=== PATIENT | female | born 1975 | race Caucasian/White ===

== ENCOUNTER 2017-05-09 19:23 | Inpatient (IN) | payer BC, OTHER ==
[~2017-05-09] VITALS: Ht 165.1 cm; Wt 54.0 kg
[2017-05-09] MEDS ORDERED: ONDANSETRON 4 MG/2 ML VIAL IM PRN (20:15)
[2017-05-09] MEDS ORDERED: ONDANSETRON ODT 4 MG TAB.RAPDIS SL PRN (20:15)
[2017-05-09] MEDS ORDERED: ACETAMINOPHEN 325 MG TABLET PO PRN (20:15)
[2017-05-09] MEDS ORDERED: MIRALAX 17 GM POWD.PACK PO PRN (20:15)
[2017-05-09] MEDS ORDERED: LOPERAMIDE HCL 2 MG CAPSULE PO PRN ×2 (20:15)
[2017-05-09] MEDS ORDERED: LORAZEPAM 1 MG TABLET PO PRN ×2 (20:15)
[2017-05-09] MEDS ORDERED: DICYCLOMINE HCL 20 MG TABLET PO PRN (20:15)
[2017-05-09] MEDS ORDERED: LORAZEPAM 2 MG/1 ML VIAL IM PRN (20:15)
[2017-05-09] MEDS ORDERED: MAG HYDROX/AL HYDROX/SIMETH 30 ML LIQUID UDC PO PRN (20:15)
[2017-05-09] MEDS ORDERED: MAGNESIUM HYDROXIDE 30 ML LIQUID UDC PO PRN (20:15)
[2017-05-09] MEDS ORDERED: THIAMINE HCL 200 MG/2 ML VIAL IM ONE (20:15)
--- NOTE | 2017-05-09 20:28 | NUR ---
Pre-admission assessment Patient is a 41-year old, female, seen at intake, AAOx4, no SOB and no anxiety noted at this time. Discussed with patient admission policies of the unit. Patient is coherent and able to respond to questions appropriately. Pt is ambulatory with steady gait. Pt reports drinking ETOH daily at this rate for "about a year". Alcohol of choice: Wine 2-3 glasses daily and Vodka "about 375 ml" daily. Vital signs taken and as follows: LU=904/78, P=86, O2 sat on RA=97%, RR=20, T=98.2. Pt verbalized instructions and teachings regarding disposal of narcotic and other controlled home meds, unit protocols such as taking of vital signs Q4H and handling and disposal of contraband. Addendum: 05/09/17 at 2040 by OBED MCGOVERN RN Additional information: Last drink was 05/08/17 at 2100
[2017-05-09 20:52] LABS: *URINE HCG, QUAL NEGATIVE (NEGATIVE)
[2017-05-09 20:55] LABS: *AMPHETAMINE, URINE NEGATIVE (NEGATIVE); *BARBITURATE, URINE NEGATIVE (NEGATIVE); *CANNABINOID, URINE NEGATIVE (NEGATIVE); *COCCAINE, URINE POSITIVE (NEGATIVE); *OPIATE, URINE NEGATIVE (NEGATIVE); *PHENCYCLIDINE SCREEN,URINE NEGATIVE (NEGATIVE)
[2017-05-09] MEDS ORDERED: LORAZEPAM 1 MG TABLET PO SCH (21:00)
--- NOTE | 2017-05-09 21:00 | NUR ---
ADMISSION NOTE HT - 5 FEET; 5 INCHES. WT - 119 POUNDS. NKDA / NKFA B/P=140/70,P=82,T=97.8,R=16,O2 SAT=98% ON ROOM AIR. CIWA=5. Admitting 41 y/o female to [facility] for ETOH dependency under the care of Dr Clements and Dr Franz.Pt stated she has been drinking Vodka / White wine off and on since she was 13 years old.She has been drinking approximately 500 mls of Vodka/Wine daily for the past year.Her last drink was a shot of Vodka at 1600.Pt also reported using cocaine in the past but not recently.Pt presented with nausea,anxiety,diaphoresis,decreased appetite and chills. Pt stated that her longest period of sobriety was 9 months x 2,which were during her 2 pregnancies in the years 2005 and 2008.She does not have any prior detox history.Pt is A/A/O X 4.She lives at home with her family.Pt has NKA,placed on regular diet and FULL CODE status.Pt has PMH of HTN,depression,anemia,pancreatitis and back injury.Pt reported that she only takes some medication for her depression but does not remember the name of the medication.No HX of seizures noted.Skin is intact,warm and dry to touch.She has multiple bruises all over her body,unable to state how she got them,thinks they are due to anemia.Breathing is even and non labored,lungs are clear to auscultation bilaterally;abdomen is soft and palpable with b/s present x 4.Pt oriented to room and unit;care plan and safety checks initiated, is aware of admission.All safety measures are in place per hospital policy,call light is within reach,no c/o pain noted;will continue to monitor for safe detox.
[2017-05-09] MEDS ORDERED: THIAMINE HCL 200 MG/2 ML VIAL ONE (21:38)
[2017-05-09 23:17] LABS: BASOPHILS % (AUTO) 1.1 % (0.0-2.0); EOSINOPHILS % (AUTO) 1.7 % (0.0-7.0); HEMATOCRIT 34.3 % (31.2-41.9); HEMOGLOBIN 11.9 g/dL (10.9-14.3); LYMPHOCYTES # (AUTO) 0.7 K/uL (20.0-40.0); MEAN CORPUSCULAR HEMOGLOBIN 35.3 uug (24.7-32.8); MEAN CORPUSCULAR HGB CONC 35 g/dL (32.3-35.6); MEAN CORPUSCULAR VOLUME 101.4 fL (75.5-95.3); MONOCYTES # (AUTO) 0.4 K/uL (2.0-10.0); MONOCYTES % (AUTO) 14.2 % (0.0-11.0); NEUTROPHILS # (AUTO) 1.5 K/uL (1.8-8.9); PLATELET COUNT (AUTO) 77 K/uL (179-408); RED BLOOD CELL COUNT(AUTO) 3.38 MIL/uL (3.63-4.92); WHITE BLOOD COUNT (AUTO) 2.6 K/uL (3.8-11.8)
[2017-05-09 23:45] LABS: ETHANOL < 3 MG/DL (0-0)
[2017-05-10] VITALS: BP 135/72
[2017-05-10] MEDS ORDERED: DULO60CA45 PO (02:35)
[2017-05-10 04:00] VITALS: BP 138/78
--- NOTE | 2017-05-10 04:40 | NUR ---
PRN ATIVAN 1 MG PO GIVEN FOR CIWA 6.WILL MONITOR.
--- NOTE | 2017-05-10 05:40 | NUR ---
PRN F/U PRN EFFECTIVE,PT IS CALM AND RESTING IN BED WITH EYES CLOSED,APPEARS TO BE ASLEEP.UNABLE TO ASSES FOR CIWA DUE TO SLEEP.
[2017-05-10 05:54] LABS: ALANINE AMINOTRANSFERASE 85 U/L (14-59); ALKALINE PHOSPHATASE 289 U/L (50-136); AMYLASE 28 U/L (25-115); ASPARTATE AMINOTRANSFERASE 244 U/L (15-37); BILIRUBIN,TOTAL 1.5 mg/dL (0.2-1.0); CARBON DIOXIDE 23 mmol/L (21-32); CHLORIDE 99 mmol/L (98-107); CHOLESTEROL 304 mg/dL (<200); CREATININE 0.8 mg/dL (0.6-1.3); GLUCOSE 150 mg/dL (74-106); HDL CHOLESTEROL 83 mg/dL (40-60); MAGNESIUM 1.7 mg/dL (1.8-2.4); POTASSIUM 3.2 mmol/L (3.5-5.1); TRIGLYCERIDES 98 MG/DL (30-150); UREA NITROGEN, BLOOD 10 mg/dL (7-18)
--- NOTE | 2017-05-10 06:51 | NUR ---
END OF SHIFT Pt is a 41 y/o female to admitted to [facility] for ETOH dependency under the care of Dr Clements and Dr Franz. Pt is A/O X 4.Pt has NKA,placed on regular diet and FULL CODE status.Pt has PMH of HTN,depression,anemia,pancreatitis and back injury. No HX of seizures noted.CIWA was 5 on admission.PRN Ativan 1 mg po given x 1 for CIWA of 6 and was effective.Pt was given 1 dose of ativan 2 mg last night and will start on ativan taper today as ordered.Pt slept 6 hrs,fluid intake was 500 mls,voided x 1 .PO fluids encouraged as tolerated. All safety measures in place with call light within reach. Will continue to monitor.
--- NOTE | 2017-05-10 07:55 | NUR ---
BEGINNING OF SHIFT Patient endorsement report received from shiftman nurse, all pertinent information discussed. Patient is a 41 year old female with admitting Dx: etoh dependence. Patient under close observation. Patient is scheduled to begin an ativan taper this morning, scheduled to begin day 1 of taper. patient received PRN: Ativan during shiftman. patient slept for 6 hours, and last CIWA: 5. will educate regarding plan of care for the day and medication regimen. safety measures in place. call light kept with in reach. all needs met and rendered, call light kept with in reach, will continue to monitor closely.
[2017-05-10 08:52] VITALS: BP 132/85
[2017-05-10] MEDS: MULTIVITAMINS,THERAPEUTIC TABLET PO SCH (08:58)
[2017-05-10] MEDS: LORAZEPAM 1 MG TABLET PO SCH ×3 (08:59→20:30)
[2017-05-10] MEDS: FOLIC ACID 1 MG TABLET PO SCH (08:59)
[2017-05-10] MEDS: THIAMINE HCL 100 MG TABLET PO SCH (08:59)
[2017-05-10] MEDS ORDERED: TUBERCULIN,PURIF.PROT.DERIV. 5 TU/0.1 ML TEST ID ONE (09:00)
[2017-05-10] MEDS: DULOXETINE 60 MG CAPSULE.DR PO SCH (10:08)
[2017-05-10] MEDS ORDERED: POTASSIUM CHLORIDE 20 MEQ TAB.PRT.SR PO ONE (10:15)
[2017-05-10] MEDS ORDERED: MAGNESIUM OXIDE 400 MG TABLET PO ONE (10:15)
--- NOTE | 2017-05-10 11:00 | NUR ---
MD ORDERS Patient was administered magnesium and potassium as ordered d/t low levels. Well tolerated, will continue to monitor.
[2017-05-10 13:07] VITALS: BP 145/72
[2017-05-10 16:51] VITALS: BP 130/80
--- NOTE | 2017-05-10 19:03 | NUR ---
END OF SHIFT Patient alert and oriented x4, vital signs were WNL during shift. Patient is compliant with therapeutic plan of care. Patient with admitting Dx: ETOH dependence and continues on a 4 day Ativan taper as ordered, currently on day 1 of taper, well tolerated, no ASE noted. During shift patient presented with: Tremors that can be felt but not seen, mild sweats, moderate anxiety, mild agitation, and moderate head fullness. CIWA: 11; 1300 CIWA: 11; 1700 CIWA: 6. Detox medication effective at reducing withdrawal symptoms. Received no PRNs during assistant shift supervisor. Encouraged adequate PO fluid intake as tolerated. Encouraged patient to attend group therapies/sessions to learn new coping skills to prevent relapse, noted attending and participating, denies SI/HI.Noted with good appetite during shift. Safety measures in place, call light kept with in reach. Fall precautions observed at all times. Will continue to monitor. Patient endorsed to assistant shift supervisor nurse, all pertinent information discussed.
--- NOTE | 2017-05-10 19:10 | NUR ---
Start of Shift Patient Received. Patient is in her room, awake, alert and verbally responsive. Breathing even and non labored. Per endorsement, patient continues receiving a modified 4 day Ativan taper. Magnesium and Potassium supplemented as per MD orders with patient tolerating well. Patient is noted with tachycardia, MD aware with no additional orders. Upon admission patient is noted with multiple scattered bruising and is currently being monitored for further bruising or bleeding. Patient is also being monitored for episodes of epistaxis. No Episodes noted. Patient encouraged to refrain from excessive picking. No PRN Medications administered. Last noted CIWA 6. Will encourage fluids as tolerated. All needs attended to promptly. Will continue plan of care as ordered.
[2017-05-10 20:25] VITALS: BP 135/79
[2017-05-10] MEDS: IBUPROFEN 400 MG TABLET PO PRN (20:30)
--- NOTE | 2017-05-10 20:35 | NUR ---
MD Communication/PRN medication Administration Patient noted verbalizing increased vivid dreams and explains "I found myself reaching for my children and then noticed that I was typing at my computer but obviously I'm here. I understanding it was dream but it was so real." CIWA noted to be 15. aware. Patient also noted verbalizing increased pain 5/10 due to lower back. PRN Motrin administered as per order. Encouraged patient to drink fluids as tolerated. All questions answered. Will continue to monitor.
[2017-05-10] MEDS: diphenhydrAMINE 50 MG CAPSULE PO PRN (21:44)
--- NOTE | 2017-05-10 21:48 | NUR ---
PRN Medication Reassessment/PRN Medication Administration Patient is noted in bed awake, alert and verbally responsive. Patient is able to verbalize "I still keep having very vivid dreams. I just was telling my dog to sit down. I thought I was back at home trying to make a phone call." CIWA noted to be 15. Patient is able to verbalize PRN Motrin was effective in minimizing pain. Will continue to monitor.
--- NOTE | 2017-05-10 22:45 | NUR ---
PRN Medication Reassessment Patient is noted in bed sleeping. Breathing even and non labored. No signs of restlessness or discomfort noted. No episodes of hallucinations noted. PRN Ativan 2mg noted to be effective. Will continue to monitor.
[2017-05-11 00:10] VITALS: BP 133/77
[2017-05-11 04:15] VITALS: BP 115/71
--- NOTE | 2017-05-11 07:03 | NUR ---
End of Shift Patient is in bed sleeping but is easily aroused to verbal stimuli. Breathing even and non labored. Patient is currently receiving a modified 4 day Ativan taper. Patient was noted with increased CIWA of 15 due to increased vivid dreams, tremulous, anxiety, and restlessness. Patient was able to describe her dreams as I just was telling my dog to sit down. I thought I was back at home trying to make a phone call. And I found myself reaching for my children and then noticed that I was typing at my computer but obviously I'm here. Patient was also given PRN Benadryl for inability of falling asleep and staying asleep with medication noted to be effective. Patient slept a total of 9 hours. No episodes of epistaxis noted. Patient continues to be monitored for bleeding. Encouraged and educated on fluid intake with patient able to verbalize understanding. Last noted CIWA 15. All needs attended to promptly. Will endorse to continue plan of care as ordered.
[2017-05-11 07:15] LABS: BASOPHILS % (AUTO) 1.6 % (0.0-2.0); EOSINOPHILS # (AUTO) 0.1 K/uL (0.0-0.7); EOSINOPHILS % (AUTO) 4.8 % (0.0-7.0); HEMATOCRIT 34.4 % (31.2-41.9); LYMPHOCYTES # (AUTO) 0.8 K/uL (20.0-40.0); LYMPHOCYTES % (AUTO) 29.8 % (20.5-51.5); MEAN CORPUSCULAR HEMOGLOBIN 35.4 uug (24.7-32.8); MEAN CORPUSCULAR HGB CONC 35 g/dL (32.3-35.6); MONOCYTES # (AUTO) 0.3 K/uL (2.0-10.0); NEUTROPHILS # (AUTO) 1.4 K/uL (1.8-8.9); NEUTROPHILS % (AUTO) 52.8 % (38.5-71.5); PLATELET COUNT (AUTO) 84 K/uL (179-408); WHITE BLOOD COUNT (AUTO) 2.6 K/uL (3.8-11.8)
--- NOTE | 2017-05-11 07:23 | NUR ---
BEGINNING OF SHIFT Patient endorsement report received from wallcovering hanger nurse, all pertinent information discussed. Patient is a 41 year old female with admitting Dx: etoh dependence. Patient under close observation. Patient continues on an Ativan taper, scheduled to begin day 2 of taper, patient received PRN: Ativan 2mg and Benadryl during wallcovering hanger, patient with episodes of vivid dreams during the night, will monitor closely for any s/sx of auditory of visual hallucinations during shift. patient slept for 9 hours, and last CIWA: 15. will educate regarding plan of care for the day and medication regimen. safety measures in place. call light kept with in reach. all needs met and rendered, call light kept with in reach, will continue to monitor closely.
[2017-05-11 08:11] LABS: HEPATITIS B SURFACE AG Negative (Negative)
[2017-05-11 08:44] VITALS: BP 124/67
[2017-05-11] MEDS: DULOXETINE 60 MG CAPSULE.DR PO SCH (08:51)
[2017-05-11] MEDS: MULTIVITAMINS,THERAPEUTIC TABLET PO SCH (08:51)
[2017-05-11] MEDS: LORAZEPAM 1 MG TABLET PO SCH ×2 (08:51→14:05)
[2017-05-11] MEDS: FOLIC ACID 1 MG TABLET PO SCH (08:51)
[2017-05-11] MEDS: THIAMINE HCL 100 MG TABLET PO SCH (08:51)
[2017-05-11 08:58] LABS: ALANINE AMINOTRANSFERASE 108 U/L (14-59); ALKALINE PHOSPHATASE 298 U/L (50-136); ASPARTATE AMINOTRANSFERASE 279 U/L (15-37); BILIRUBIN,DIRECT 0.6 mg/dL (0.0-0.2); BILIRUBIN,TOTAL 1.3 mg/dL (0.2-1.0); CARBON DIOXIDE 26 mmol/L (21-32); CHLORIDE 104 mmol/L (98-107); CREATININE 0.5 mg/dL (0.6-1.3); GLUCOSE 108 mg/dL (74-106); MAGNESIUM 1.8 mg/dL (1.8-2.4); PHOSPHOROUS 3.3 mg/dL (2.5-4.9); POTASSIUM 3.7 mmol/L (3.5-5.1); UREA NITROGEN, BLOOD 9 mg/dL (7-18)
[2017-05-11 09:09] LABS: BILIRUBIN,DIRECT 0.5 mg/dL (0.0-0.2); BILIRUBIN,TOTAL 1.2 mg/dL (0.2-1.0)
--- NOTE | 2017-05-11 09:30 | NUR ---
Therapist prompted client about group times. Client stated she will try to attend all groups today if she feels well.
[2017-05-11] MEDS ORDERED: MAGNESIUM OXIDE 400 MG TABLET PO ONE (09:45)
[2017-05-11] MEDS ORDERED: POTASSIUM CHLORIDE 20 MEQ TAB.PRT.SR PO ONE (09:45)
[2017-05-11 11:30] LABS: EOSINOPHILS % (MANUAL) 4 % (0-8); LYMPHOCYTES % (MANUAL) 26 % (20-40); MONOCYTES % (MANUAL) 11 % (2-10); NEUTROPHILS % (MANUAL) 59 % (42-75)
[2017-05-11 13:48] VITALS: BP 129/80
[2017-05-11 16:53] VITALS: BP 131/84
[2017-05-11] MEDS: IBUPROFEN 400 MG TABLET PO PRN (18:24)
--- NOTE | 2017-05-11 19:18 | NUR ---
END OF SHIFT Patient alert and oriented x4, vital signs were WNL during shift. Patient is compliant with therapeutic plan of care. Patient with admitting Dx: ETOH dependence and continues on a 4 day Ativan taper as ordered, currently on day 2 of taper, well tolerated, no ASE noted. During shift patient presented with: fine tremors, barely sweating, anxiety, mild agitation, and mild head fullness. 0900CIWA:9; 1300 CIWA: 7; 1700 CIWA:7. Patient was monitored closely during shift, no episodes of auditory or visual hallucination. Patient was seen by Dr. Clements during shift and aware of patients "vivid dreams" Potassium and Magnesium replaced as ordered, well tolerated. Detox medication effective at reducing withdrawal symptoms. Received PRN: Motrin during overnight associate, medication effective, one hour post administration. Encouraged adequate PO fluid intake as tolerated. Encouraged patient to attend group therapies/sessions to learn new coping skills to prevent relapse, preferred to stay in room, despite much encouragement to attend, denies SI/HI.Noted with good appetite during shift. Safety measures in place, call light kept with in reach. Fall precautions observed at all times. Will continue to monitor. Patient endorsed to overnight associate nurse, all pertinent information discussed
--- NOTE | 2017-05-11 19:30 | NUR ---
START OF SHIFT Pt is a 41 y/o female admitted on 05/09/17 for ETOH dependence. Pt is on a 4 day Ativan taper, tolerating well. Last CIWA 7 and PRN Motrin administered during day shift. Upon assessment pt laying in bed and presents with anxiety, irritability, fatigue, flat affect, increased HR, headache, back pain, sweats, photosensitivity and reports she is sensitive to sounds. Respirations even and unlabored. Denies chest pain or SOB. Denies N/V/D. Medications due. Safety measures in place. Call light within reach. Will continue to monitor.
[2017-05-11 20:00] VITALS: BP 130/82
[2017-05-11] MEDS: GABAPENTIN 100 MG CAPSULE PO SCH (20:41)
[2017-05-11] MEDS: PRAZOSIN HCL 1 MG CAPSULE PO SCH (20:42)
[2017-05-11] MEDS ORDERED: LORAZEPAM 1 MG TABLET PO SCH (21:00)
--- NOTE | 2017-05-12 | NUR ---
CIWA DEFERRED AND VITALS REFUSED Pt laying in bed with eyes closed, CIWA deferred, to be assessed when pt is awake per orders. Vitals refused. Respirations even and unlabored. Safety measures in place. Call light within reach. Will continue to monitor.
--- NOTE | 2017-05-12 07:14 | NUR ---
END OF SHIFT Pt is a 41 y/o female admitted on 05/09/17 for ETOH dependence. Pt is on a 4 day Ativan taper, tolerating well. Pt presented with anxiety, irritability, fatigue, flat affect, increased HR, headache, back pain, sweats, photosensitivity and reports she is sensitive to sounds. Scheduled medications administered, effective in S/S of withdrawal as verbalized by pt. No PRNs administered. Last CIWA 8. Pt slept 8 hours. Intake 600 ml, void x 2, stool x 0. Safety measures in place. Call light within reach. Pts needs have been met. Endorsed to day shift nurse.
--- NOTE | 2017-05-12 07:45 | NUR ---
START OF SHIFT Endorse rcvd from ongoing nurse, client is in room, she is easy arouse, she is a/o x4, she presents with depressed mood, flat affect, pale, lips dry and cracked, dark eye circles, moist skin, fine tremors, and dark purple bruises x 4 on L arm, x 2 on R arm, a bruise on R forearm d/t blood drawn, x 2 on back, x 2 on R lower leg. , encourage client to avoid bumps or falls to avoid any more bruising and to inform nursing staff for any spontaneous bleeding/bruising. Room is free of clutter. Client stated, "I had really vivid nightmares last night, but I was able to sleep a little bit better with the medication they gave me. Now, I just feel tired, really tired, have no appetite and I have stomach cramps." She denies any SI/HI. Encourage client to increase PO fluid as tolerated to maintain hydrated and to facilitate detox. Encourage client to attend group therapy for skills to maintain sober. Client was admitted for withdrawal from alcohol. She is on 4 day Ativan taper (day 3). Last CIWA 8 @ 1999. Client slept 8 hrs intermittently. NKA, full code, regular diet. No history of withdrawal-induced seizures. Side rails x 2 up/padded as seizure precautions. Call light within reach.
[2017-05-12 08:18] VITALS: BP 112/76
[2017-05-12] MEDS: DULOXETINE 60 MG CAPSULE.DR PO SCH (08:29)
[2017-05-12] MEDS: THIAMINE HCL 100 MG TABLET PO SCH (08:29)
[2017-05-12] MEDS: FAMOTIDINE 20 MG TABLET PO SCH (08:29)
[2017-05-12] MEDS: FOLIC ACID 1 MG TABLET PO SCH (08:29)
[2017-05-12] MEDS: MULTIVITAMINS,THERAPEUTIC TABLET PO SCH (08:29)
[2017-05-12] MEDS: LORAZEPAM 1 MG TABLET PO SCH ×2 (08:29→20:55)
[2017-05-12] MEDS: GABAPENTIN 100 MG CAPSULE PO SCH ×2 (08:29→20:55)
--- NOTE | 2017-05-12 09:00 | NUR ---
Zero induration noted at PPD Test site on L forearm.
--- NOTE | 2017-05-12 12:10 | NUR ---
Therapist prompted client about group times. Client stated she will attend the afternoon group today.
[2017-05-12 12:40] VITALS: BP 126/60
--- NOTE | 2017-05-12 14:20 | NUR ---
Client is in activity room, playing board games with peers. Client reports feeling less tired, haven't noted any new bruising, and no spontaneous bleeding. Encourage client to notify nursing staff with any change of condition or concerns, she verbalized understanding.
[2017-05-12 16:55] VITALS: BP 134/78
--- NOTE | 2017-05-12 17:03 | NUR ---
Therapist prompted client to go to group today. Client agreed to go.
[2017-05-12] MEDS: IBUPROFEN 400 MG TABLET PO PRN (18:36)
--- NOTE | 2017-05-12 18:36 | NUR ---
PRN Motrin 400mg PO administered for upper back pain 08/18. Call light within reach. Will continue to monitor.
--- NOTE | 2017-05-12 19:00 | NUR ---
Start of Shift Patient Received. Patient is in her room, awake, alert and verbally responsive. Breathing even and non labored. Per endorsement, patient was given PRN Motrin for upper back pain. Per patient medication was effective in minimizing pain. Per endorsement, patient noted to be compliant with medications and plan of care. Patient was noted to participate in group activities throughout the day but noted to miss group meetings. Patient is noted with multiple scattered bruises with no additional bruising noted. PPD noted to be negative. Last noted CIWA 7. Continued to educate and encourage patient to drink fluids as tolerated. All needs attended to promptly. Will continue plan of care as ordered.
--- NOTE | 2017-05-12 19:20 | NUR ---
END OF SHIFT Endorse to incoming nurse, client is in room, is a/o x4, she continues to present with depressed mood, flat affect, moist skin, fine tremors. She denies any SI/HI. Client is compliant with 1/3 of group therapy. Adequate PO fluid intake 1950mL, void x 4, stool x 1. PRN Motrin 400mg PO administered for upper back pain 08/18, incoming nurse to reassess. Client was admitted for withdrawal from alcohol. She is on 4 day Ativan taper (day 3). Last CIWA 7 @ 1600. NKA, full code, regular diet. No history of withdrawal-induced seizures. Side rails x 2 up/padded as seizure precautions. Call light within reach.
[2017-05-12 20:45] VITALS: BP 123/77
[2017-05-12] MEDS: diphenhydrAMINE 50 MG CAPSULE PO PRN (20:55)
[2017-05-12] MEDS: PRAZOSIN HCL 1 MG CAPSULE PO SCH (20:55)
--- NOTE | 2017-05-12 21:00 | NUR ---
PRN Medication Administration Patient is verbalizing inability of falling asleep. PRN Benadryl administered as per order. Will continue to monitor.
--- NOTE | 2017-05-12 22:00 | NUR ---
PRN Medication Reassessment Patient is noted in bed sleeping. Breathing even and non labored. No signs of restlessness or discomfort noted. PRN Benadryl noted to be effective. Will continue to monitor.
[2017-05-12 23:21] VITALS: BP 130/104
[2017-05-12] MEDS: CLONIDINE HCL 0.1 MG TABLET PO PRN (23:24)
--- NOTE | 2017-05-12 23:28 | NUR ---
PRN medication Administration patient noted awake and verbalized "I'm really restless. I woke up and cant go back to sleep." Vitals rendered and noted to be 130/104 pulse of 98. Patient verbalized "i just have a lot going thru my head." PRN Clonidine administered as ordered. Will continue to monitor.
[2017-05-13 00:21] VITALS: BP 106/62
--- NOTE | 2017-05-13 00:23 | NUR ---
PRN Medication Reassessment Patient was given PRN Clonidine for elevated blood pressure with medication noted to be effective. Blood pressure noted to be 106/62 and pulse of 89. Will continue to monitor.
[2017-05-13 04:15] VITALS: BP 105/59
--- NOTE | 2017-05-13 07:15 | NUR ---
End of Shift Patient is in bed sleeping but easily aroused to verbal stimuli. Breathing even and non labored. Patient continues on a modified Ativan taper. Patient was given PRN Clonidine for elevated blood pressure with medication noted to be effective. Patient was also given PRN Benadryl with medication noted to be not effective due to patient verbalizing inability of falling back asleep. Last noted CIWA 5. All needs attended to promptly. Will endorse to continue plan of care as ordered.
--- NOTE | 2017-05-13 07:40 | NUR ---
START OF SHIFT Endorse rcvd from ongoing nurse, client is in bed, she is a/o x4, she presents with anxious mood, flat affect, purple bruises x 4 on L arm, x 2 on R arm, a bruise on R forearm d/t blood drawn, x 2 on back, x 2 on R lower leg, no new bruises noted, encourage client to inform nursing staff for any spontaneous bleeding/bruising. Room is free of clutter. Client stated, "I want to try and sleep a little more, I just feel very tired, really tired, I can't seem to stop moving my legs." She denies any SI/HI. Encourage client to increase PO fluid as tolerated to maintain hydrated and to facilitate detox. Encourage client to attend group therapy for skills to maintain sober. Client was admitted for withdrawal from alcohol. She is on last of 4 day Ativan taper. Last CIWA 5 @ 1999. PRN Benadryl 50mg PO for inability to sleep, client slept 5 hrs intermittently. PRN Clonidine 0.1mg PO for increased BP and P, after an hour BP 106/62, P 89 NKA, full code, regular diet. No history of withdrawal-induced seizures. Side rails x 2 up/padded as seizure precautions. Call light within reach.
--- NOTE | 2017-05-13 07:42 | NUR ---
START OF SHIFT & Reassess Tylenol 650mg Endorse rcvd from ongoing nurse, client is in bed, she is a/o x 4, she presents with anxious mood, flat affect, skin noted with goosebumps, warm/moist to touch, fine tremors, dilated pupils, runny nose, yawning, cold/chills, stomach cramps, and fatigue. She reports some relief with Tylenol on lower left toothache 3/10, but tolerable as long as she does not chew on that side. No swelling noted on L side of cheek. She denies any SI/HI. Encourage client to increase PO fluid as tolerated to maintain hydration and facilitate detox. Encourage client to attend group therapy for skills to maintain sober. Client was admitted for withdrawal from heroin and alprazolam. She is on 4 day Ativan/ 4 day Subutex taper (day 2). Last CIWA 7 @ 0400. PRN Robaxin 750mg PO for myalgia, Clonidine 0.1mg PO for anxiety, noted effective. PRN Benadryl 50mg PO for inability to sleep, client slept 8 hrs intermittently. NKA, full code, regular diet. No history of withdrawal-induced seizures. Side rails x 2 up/padded. Call light within reach. Addendum: 05/13/17 at 0743 by NIKHIL SIMS RN wrong client
[2017-05-13 08:23] VITALS: BP 108/64
[2017-05-13] MEDS ORDERED: LORAZEPAM 1 MG TABLET PO SCH (09:00)
[2017-05-13] MEDS: DULOXETINE 60 MG CAPSULE.DR PO SCH (09:01)
[2017-05-13] MEDS: IBUPROFEN 400 MG TABLET PO PRN (09:01)
--- NOTE | 2017-05-13 09:01 | NUR ---
PRN Motrin 400mg PO administered for upper back pain 08/18. Call light within reach. Will continue to monitor.
[2017-05-13] MEDS: GABAPENTIN 100 MG CAPSULE PO SCH ×2 (09:02→20:53)
[2017-05-13] MEDS: THIAMINE HCL 100 MG TABLET PO SCH (09:02)
[2017-05-13] MEDS: MULTIVITAMINS,THERAPEUTIC TABLET PO SCH (09:02)
[2017-05-13] MEDS: FAMOTIDINE 20 MG TABLET PO SCH (09:02)
[2017-05-13] MEDS: FOLIC ACID 1 MG TABLET PO SCH (09:02)
--- NOTE | 2017-05-13 10:00 | NUR ---
Reassess PRN Motrin 400mg, client stated, "It feels a little sore, but I can tolerate." She reports pain 2/10. Call light within reach.
[2017-05-13 12:00] VITALS: BP 116/70
[2017-05-13 16:55] VITALS: BP 123/68
--- NOTE | 2017-05-13 17:04 | NUR ---
Therapist prompted client to attend daily group therapy sessions, and client stated that he would attend the next group.
[2017-05-13] MEDS ORDERED: FAMO20TA8 PO (17:27)
[2017-05-13] MEDS ORDERED: GABA-532 PO (17:27)
[2017-05-13] MEDS ORDERED: CLON0.1T14 PO (17:27)
[2017-05-13] MEDS ORDERED: PRAZ1CAP2 PO (17:27)
[2017-05-13] MEDS ORDERED: DIPH50CA37 PO (17:27)
--- NOTE | 2017-05-13 19:02 | NUR ---
END OF SHIFT Endorse to incoming nurse, client is in room, is a/o x4, she continues to present with anxious mood, and flat affect. She denies any SI/HI. Client is compliant with 2/3 of group therapy. Adequate PO fluid intake 2746mL, void x 3. LBM 05/12/17. PRN Motrin 400mg PO administered for upper back pain 08/18, noted effective. Client was admitted for withdrawal from alcohol. She completed 4 day Ativan taper, tolerated well. She is schedule for discharge tomorrow. Last CIWA 5 @ 1600. NKA, full code, regular diet. No history of withdrawal-induced seizures. Side rails x 2 up/padded as seizure precautions. Call light within reach.
[2017-05-13 20:00] VITALS: BP 121/74
--- NOTE | 2017-05-13 20:00 | NUR ---
Start of Shift Patient noted to be melancholic, AAOx4 and with anxiety. Bruising noted all over the patient's upper arms and lower extremities. Patient verbalized new bruising today. Pt is ambulatory with steady gait. Ativan taper is complete and withdrawal symptoms are controlled at this time. Pt is sweaty at this time. Per pt, sweating is better today but still not her "normal". Pt also verbalized of feeling fatigue. Latest CIWA=6. Will continue to monitor.
[2017-05-13] MEDS: PRAZOSIN HCL 1 MG CAPSULE PO SCH (20:53)
[2017-05-13] MEDS: diphenhydrAMINE 50 MG CAPSULE PO PRN (20:55)
--- NOTE | 2017-05-13 20:57 | NUR ---
RN note PRN Benadryl Pt verbalized inability to sleep, requests for Benadryl. Administered Benadryl 50 mg PO. Will reassess.
--- NOTE | 2017-05-13 21:55 | NUR ---
RN note reassess Pt asleep on bed, no SOB nor facial grimacing noted.
[2017-05-13] MEDS: CLONIDINE HCL 0.1 MG TABLET PO PRN (23:03)
--- NOTE | 2017-05-13 23:05 | NUR ---
RN note PRN Clonidine Pt verbalized that she woke up "moments ago" and c/o not being able to get back to sleep. Noted with increasing anxiety. Administered Clonidine 0.1 mg PO. Will reassess.
[2017-05-14] VITALS: BP 115/70
--- NOTE | 2017-05-14 00:05 | NUR ---
RN note reassess Patient asleep on bed, with no facial grimacing nor SOB noted.
[2017-05-14 04:00] VITALS: BP 122/72
--- NOTE | 2017-05-14 07:05 | NUR ---
End of Shift Patient continues to be melancholic, AAOx4 and with anxiety though pt is cooperative. No new bruising throughout the shift. Pt also noted with dark under eye circles and c/o of some sweat at this time. Fall, universal, seizure and safety prec in place the whole shift. Pt to be discharged today and is aware. Latest CIWA=3, slept for 4 hours. Endorsed to AM shift nurse for continuity of care.
--- NOTE | 2017-05-14 07:10 | NUR ---
Start of shift: Received report from night nurse, patient awake in bed complaining of back/shoulder pain , offered pain medication and warm compress. Patient here for Alcohol withdrawal and is scheduled to be discharged to home this AM after completing a 4 day Ativan taper. patient has no questions at this time and understands discharge process. Vital signs within normal limits. Last CIWA 3 @ 0400 and patient slept for 4 hours last night. Will follow DC instructions and plan of care.
[2017-05-14] MEDS: IBUPROFEN 400 MG TABLET PO PRN (07:17)
--- NOTE | 2017-05-14 07:17 | NUR ---
prn medications prn tylenol 650mg po and motrin 400mg po given for 6/10 shoulder/back pain. warm compress also applied, will continue to monitor
[2017-05-14 08:00] VITALS: BP 118/70
[2017-05-14] MEDS: DULOXETINE 60 MG CAPSULE.DR PO SCH (08:11)
[2017-05-14] MEDS: MULTIVITAMINS,THERAPEUTIC TABLET PO SCH (08:11)
[2017-05-14] MEDS: GABAPENTIN 100 MG CAPSULE PO SCH (08:11)
[2017-05-14] MEDS: THIAMINE HCL 100 MG TABLET PO SCH (08:11)
[2017-05-14] MEDS: FOLIC ACID 1 MG TABLET PO SCH (08:12)
[2017-05-14] MEDS: FAMOTIDINE 20 MG TABLET PO SCH (08:12)
--- NOTE | 2017-05-14 08:17 | NUR ---
reassess prn patient states prn tylenol 650 mg po and motrin 400mg po has reduced her shoulder /neck pain to 2/10 so medication was effective.
--- NOTE | 2017-05-14 09:22 | NUR ---
Discharge Patient discharged from unit @ 0922, ambulated off the unit and was picked up by "[employer] " private hole digger truck driver. Discharge instructions given and signed and all paperwork, belongings and medications given to patient. vital signs BP 118/70 HR 84 RR 16 T 97.8, last CIWA 3 @ 0800.
== END 2017-05-14 09:22 | disposition home or self-care (01) | DRG 895 ==
LOC: SRC 19:55
PROVIDERS: ADMIT Internal Medicine; ATTEND Internal Medicine
PROC: HZ2ZZZZ Detoxification Services for Substance Abuse Treatment (ICD-10-PCS; principal; 2017-05-09)
PROC: HZ31ZZZ Individual Counseling for Substance Abuse Treatment, Behavioral (ICD-10-PCS; 2017-05-11)
PROC: HZ41ZZZ Group Counseling for Substance Abuse Treatment, Behavioral (ICD-10-PCS; 2017-05-12)
DX: F10.230 Alcohol dependence with withdrawal, uncomplicated (principal); D69.6 Thrombocytopenia, unspecified; E87.2 Acidosis; F33.1 Major depressive disorder, recurrent, moderate; E83.42 Hypomagnesemia; K70.10 Alcoholic hepatitis without ascites; F14.10 Cocaine abuse, uncomplicated; Y90.0 Blood alcohol level of less than 20 mg/100 ml; Z79.899 Other long term (current) drug therapy; Z82.49 Family history of ischemic heart disease and other diseases of the circulatory system; Z81.1 Family history of alcohol abuse and dependence; Z91.89 Other specified personal risk factors, not elsewhere classified; E78.5 Hyperlipidemia, unspecified; E87.6 Hypokalemia; D72.819 Decreased white blood cell count, unspecified; I15.9 Secondary hypertension, unspecified; R04.0 Epistaxis; G47.50 Parasomnia, unspecified
CPT/HCPCS: 36415; 70030-TC; 80307; 80353; 82746; 83735; 84100; 84703; 85025; 85610; 86580; 86592; 86705; 86803; 87340; 87806; G0480; J3411; Q0163

== ENCOUNTER 2017-06-08 08:48 | Inpatient (IN) | payer BC, OTHER ==
[~2017-06-08] VITALS: Ht 165.1 cm; Wt 56.7 kg
[~2017-06-08 08:48] MED LIST: CLON0.1T14 PO; DIPH50CA37 PO; DULO60CA45 PO; FAMO20TA8 PO; GABA-532 PO; PRAZ1CAP2 PO
[2017-06-08] MEDS ORDERED: ONDANSETRON ODT 4 MG TAB.RAPDIS SL PRN (12:30)
[2017-06-08] MEDS ORDERED: MIRALAX 17 GM POWD.PACK PO PRN (12:30)
[2017-06-08] MEDS ORDERED: LOPERAMIDE HCL 2 MG CAPSULE PO PRN ×2 (12:30)
[2017-06-08] MEDS ORDERED: DICYCLOMINE HCL 20 MG TABLET PO PRN (12:30)
[2017-06-08] MEDS ORDERED: ACETAMINOPHEN 325 MG TABLET PO PRN (12:30)
[2017-06-08] MEDS ORDERED: MAGNESIUM HYDROXIDE 30 ML LIQUID UDC PO PRN (12:30)
[2017-06-08] MEDS ORDERED: MAG HYDROX/AL HYDROX/SIMETH 30 ML LIQUID UDC PO PRN (12:30)
[2017-06-08] MEDS ORDERED: LORAZEPAM 2 MG/1 ML VIAL IM PRN (12:30)
[2017-06-08] MEDS ORDERED: LORAZEPAM 1 MG TABLET PO PRN (12:30)
[2017-06-08] MEDS ORDERED: THIAMINE HCL 200 MG/2 ML VIAL IM ONE (12:30)
[2017-06-08] MEDS ORDERED: ONDANSETRON 4 MG/2 ML VIAL IM PRN (12:30)
[2017-06-08] MEDS ORDERED: PROMETHAZINE HCL 25 MG TABLET PO PRN (12:30)
[2017-06-08] MEDS ORDERED: ONDANSETRON HCL 4 MG TABLET PO PRN (12:30)
--- NOTE | 2017-06-08 12:30 | NUR ---
PRE ADMISSION ASSESSMENT PATIENT ASSESSED AT INTAKE : SHE IS A 41 YEAR OLD FEMALE, BP 129/75 HR 104 RR 18 TEMP 98 O2SATS 98% PATIENT ACCOMPANIED BY HER IS IN INTAKE OFFICE, PATIENT APPEARS INEBRIATED AND SMELLS OF ALCOHOL. PATIENT STATES TO ME THAT " THEY DID AN INTERVENTION ON ME " . PATIENT IS ALERT AND ORIENTED AND ABLE TO RESPOND APPROPRIATELY TO QUESTIONS, SHE IS AMBULATORY WITH A STEADY GAIT. DISCUSSED WITH PATIENT ADMISSION POLICIES OF THE UNIT, POLICY OF DISPOSING OF NARCOTICS AND OTHER CONTROLLED SUBSTANCES, PT VERBALIZED UNDERSTANDING. WILL CONTINUE ASSESSMENT WHEN PATIENT IS ON THE UNIT.
[2017-06-08 13:10] LABS: BASOPHILS % (AUTO) 0.8 % (0.0-2.0); EOSINOPHILS % (AUTO) 0.3 % (0.0-7.0); HEMATOCRIT 39.9 % (31.2-41.9); HEMOGLOBIN 13.8 g/dL (10.9-14.3); LYMPHOCYTES # (AUTO) 1.7 K/uL (20.0-40.0); LYMPHOCYTES % (AUTO) 29.5 % (20.5-51.5); MEAN CORPUSCULAR HEMOGLOBIN 34.3 uug (24.7-32.8); MEAN CORPUSCULAR HGB CONC 35 g/dL (32.3-35.6); MEAN CORPUSCULAR VOLUME 99.5 fL (75.5-95.3); MONOCYTES # (AUTO) 0.3 K/uL (2.0-10.0); MONOCYTES % (AUTO) 4.6 % (0.0-11.0); NEUTROPHILS # (AUTO) 3.8 K/uL (1.8-8.9); NEUTROPHILS % (AUTO) 64.8 % (38.5-71.5); PLATELET COUNT (AUTO) 80 K/uL (179-408); RED BLOOD CELL COUNT(AUTO) 4.01 MIL/uL (3.63-4.92); WHITE BLOOD COUNT (AUTO) 5.9 K/uL (3.8-11.8)
[2017-06-08 13:12] LABS: *URINE HCG, QUAL NEGATIVE (NEGATIVE)
[2017-06-08 13:13] LABS: CREATININE 0.7 mg/dL (0.6-1.3); MAGNESIUM 1.8 mg/dL (1.8-2.4); POTASSIUM 3.7 mmol/L (3.5-5.1); TOTAL PROTEIN, SERUM 8.4 g/dL (6.4-8.2)
[2017-06-08 13:19] LABS: *AMPHETAMINE, URINE NEGATIVE (NEGATIVE); *BARBITURATE, URINE NEGATIVE (NEGATIVE); *CANNABINOID, URINE NEGATIVE (NEGATIVE); *COCCAINE, URINE NEGATIVE (NEGATIVE); *OPIATE, URINE NEGATIVE (NEGATIVE); *PHENCYCLIDINE SCREEN,URINE NEGATIVE (NEGATIVE)
[2017-06-08] MEDS: LORAZEPAM 1 MG TABLET PO PRN ×3 (13:25→20:29)
--- NOTE | 2017-06-08 13:25 | NUR ---
PRN ATIVAN 1MG ATIVAN PO GIVEN FOR ANXIETY / CIWA 12 WILL REASSESS
--- NOTE | 2017-06-08 13:30 | NUR ---
ADMISSION PATIENT ADMITTED INTO ROOM 317. SKIN CHECK DONE AND SKIN INTACT WITH A FEW SMALL SCATTERED BRUISES ON ARMS AND LEGS. WEIGHT IS 125LBS AND HEIGHT IS 5'5". PATIENT APPEARS SLIGHTLY INTOXICATED AND SAY SHE HAD SOME VODKA THIS AM BEFORE HER INTERVENTION BY HER , PARENTS AND MD. PATIENT STATES SHE WAS DISCHARGED FROM [facility] ON 05/15/17 ( AFTER A 5 DAY ATIVAN TAPER ) AND WENT TO [facility] IN [place] AND AFTER 2 DAYS SHE WAS DRINKING AGAIN. SHE STATES THE ONLY PERIODS OF SOBRIETY SHE HAS HAD WAS WHEN SHE WAS ( 3 TIMES) 10 MONTHS SOBER EACH . PATIENT HAS NO PERTINENT MEDICAL OR PSYCHE HISTORY, DOES NOT TAKE ANY PRESCRIBED MEDICATIONS ,HER PMC IS DR NICOLE. PATIENT IS HERE TODAY BECAUSE HER FAMILY HAD AN INTERVENTION ON HER AFTER [facility] WAS NOT SUCCESSFUL AND THE NEW PLAN IS 30 DAY INPATIENT TREATMENT AFTER DETOX. SHE STATES SHE NEEDS TO LEARN NEW COPING SKILLS ON HOW TO STAY SOBER AND DEAL WITH LIFE WITHOUT ALCOHOL FOR THE SAKE OF HER KIDS AND FAMILY. ABUSE HISTORY: 750ML VODKA EVERY DAY FOR THE PAST 21 DAYS, LAST CONSUMED THIS AM 06/08/17 CIWA ON ADMISSION IS [address], BED LOW AND LOCKED, SIDE RAILS UP X 2 AND CALL LIGHT WITHIN REACH. WILL FOLLOW MD PLAN OF CARE.
[2017-06-08 13:43] LABS: NEUTROPHILS % (MANUAL) 65 % (42-75)
[2017-06-08 13:44] LABS: LYMPHOCYTES % (MANUAL) 30 % (20-40); MONOCYTES % (MANUAL) 5 % (2-10)
--- NOTE | 2017-06-08 14:25 | NUR ---
ATIVAN REASSESS PATIENT STATES SHE WAS ABLE TO RELAX AND FALL ASLEEP, CIWA 9
[2017-06-08] MEDS: GABAPENTIN 300 MG CAPSULE PO SCH ×2 (15:20→20:28)
[2017-06-08] MEDS: DULOXETINE 60 MG CAPSULE.DR PO SCH (16:52)
[2017-06-08] MEDS: IBUPROFEN 400 MG TABLET PO PRN (16:52)
--- NOTE | 2017-06-08 16:52 | NUR ---
PRN MEDS ATIVAN 1MG PO GIVEN FOR CIWA 14 MOTRIN 600MG PO GIVEN FOR HEADACHE 09/18 WILL REASSESS
[2017-06-08 17:00] VITALS: BP 134/87
--- NOTE | 2017-06-08 17:52 | NUR ---
PRN REASSESS PT STATES MOTRIN 600MG PO HELPED HER HEADACHE, NOW 3/10 PAIN ATIVAN HELPED RELAX PT CIWA NOW 11 ( WAS 14 ) CONTINUE TO MONITOR
--- NOTE | 2017-06-08 19:04 | NUR ---
START OF SHIFT NOTE: Endorsed patient is a 41 years old female admitted for Alcohol/Vodka withdrawal. She is on PRN Medications with tolerated well. 5 day Ativan taper ordered with first dose on 06/09/2016. Patent reports EVELIO, is on Full Code, Regular Diet, is on Fall and Seizures Precautions. Patient denies History of withdrawal-induced seizures. Patient denies SI/HI. Patient is alert and oriented x4. Last CIWA=14 @1648 per outgoing day shift nurse report: Patient presented with moderate withdrawal symptoms of anxiety, agitation, nervousness, tremors, sweating, itching, tachycardia, and headache. PRN Ativan 1 mg PO administrated by day shift nurse @1325 and @1652, and PRN Motrin 400 mg PO administrated @1652 for headache as ordered. PRN Medications were effective per day shift nurse report. Patient remains compliant with treatment, medications and diet regime. Encouraged to fluid intake as tolerated. Encourage to attended groups activities. All needs met. Safety measures in place: Call light within reach, bed is locked in lowest position, padded bed rails up bilaterally. Patient endorsed by day shift nurse. Report received. Will continue to monitor closely.
--- NOTE | 2017-06-08 19:04 | NUR ---
END OF SHIFT PATIENT IS A 41 YR OLD ADMITTED 06/08/17 FOR WITHDRAWAL FROM ALCOHOL ( VODKA) PATIENT APPEARS ANXIOUS , LABILE MOODS, IRRITABLE AND WORRIED. PRN MEDS GIVEN THIS SHIFT ATIVAN 1MG PO X 2 AND MOTRIN 600MG PO. LAST CIWA 11 @1700. PATIENT WILL START A 4 DAY ATIVAN TAPER TOMORROW 06/09/17. FLUID INTAKE THIS SHIFT 1355, 3 VOIDS AND 1 BM. SAFETY MEASURES IN PLACE, BED LOW AND LOCKED , SIDE RAILS UP X 2. FOLLOW MD PLAN OF CARE.
[2017-06-08 20:00] VITALS: BP 134/82
[2017-06-08] MEDS: MAGNESIUM CHLORIDE 64 MG TABLET.SA PO SCH (20:28)
[2017-06-08] MEDS: diphenhydrAMINE 50 MG CAPSULE PO PRN (20:29)
--- NOTE | 2017-06-08 20:29 | NUR ---
PRN ATIVAN 1 MG 1 TABLET PO FOR CIWA=10 AND PRN BENADRYL 50 MG 1 CAPSULE FOR INSOMNIA ADMINISTRATION PATIENT C/O INCREASED ANXIETY AND INSOMNIA, AND ASKED AID. PRN ATIVAN 1 MG 1 TABLET PO FOR CIWA=10 AND PRN BENADRYL 50 MG 1 CAPSULE FOR INSOMNIA ADMINISTRATED ORDERED. PATIENT TOLERATED WELL. ALL SAFETY MEASURES IN PLACE: CALL LIGHT WITHIN REACH, BED LOCKED IN LOWEST POSITION, PADDED BED RAILS UP X2. WILL CONTINUE TO MONITOR CLOSELY.
[2017-06-08 21:00] VITALS: BP 134/82
--- NOTE | 2017-06-08 21:29 | NUR ---
RE-ASSESSMENT PATIENT IS SLEEPING. RR:17. RESPIRATIONS ARE EVEN AND UNLABORED. ALL NEEDS MET. SAFETY MEASURES IN PLACE: CALL LIGHT WITHIN REACH, BED IS LOCKED IN LOWEST POSITION, BED RAILS UP X2. WILL CONTINUE TO MONITOR CLOSELY.
[2017-06-09] VITALS (7 sets, daily range): BP systolic 130–143; BP diastolic 80–86
--- NOTE | 2017-06-09 07:28 | NUR ---
END OF SHIFT NOTE: 41 years old female presented for Alcohol/Vodka withdrawal. 5 day Ativan taper ordered with first dose today, 06/09/2016. She denies History of withdrawal-induced seizures. Patient is alert and oriented x4. Patient appears sad with poor eye contact. She is noted undernourished with dark circles around eyes with uncombed hair. Education in safety and hygiene care provided. Patient was encouraged to independently perform hygiene care. Withdrawal symptoms was closely monitored. CIWA=10 @2000, CIWA=8 @0000, and last CIWA=10 @0400. Patient presented with anxiety, agitation, nervousness, tremors, stomach pain, sweating, irritability, fatigue, and restlessness. PRN Ativan 1 mg PO administrated for CIWA=10 @2028 and PRN Benadryl 50 mg 1 cap PO administrated for insomnia @2028 were effective. Patient remains compliant with treatment, medications and diet regime. Safe and calm environment with minimized noises was provided. Patient slept 9 hours, intake 1,500 ml, voided x1. All needs met. Safety measures in the place: Call light within reach, bed in the lowest position and locked, padded rails up x2. Patient endorsed to day shift nurse.
--- NOTE | 2017-06-09 07:38 | NUR ---
BEGINNING OF SHIFT Patient endorsement report received from overnight cashier nurse, all pertinent information discussed. Patient is a 41 year old female with admitting Dx: ETOH withdrawal. Patient continues under very close observation, patient with ongoing 5 day Ativan taper as ordered, and is scheduled to begin day 1 of taper. Per overnight cashier patient with last ciwa score of: 10. received PRN: Ativan and Benadryl as ordered during overnight cashier, per overnight cashier medications were effective. slept for 9 hours. Fall and seizure precautions observed at all times. Patient received awake, alert and oriented x4, educated regarding plan of care for the day, and medication regimen with good verbal understanding. will continue to monitor closely. safety measures in place.
[2017-06-09 08:08] LABS: HEPATITIS B SURFACE AG Negative (Negative)
[2017-06-09] MEDS: DULOXETINE 60 MG CAPSULE.DR PO SCH (08:52)
[2017-06-09] MEDS: THIAMINE HCL 100 MG TABLET PO SCH (08:53)
[2017-06-09] MEDS: GABAPENTIN 300 MG CAPSULE PO SCH ×3 (08:53→20:51)
[2017-06-09] MEDS: MULTIVITAMINS,THERAPEUTIC TABLET PO SCH (08:53)
[2017-06-09] MEDS: LORAZEPAM 1 MG TABLET PO SCH ×4 (08:53→20:51)
[2017-06-09] MEDS: DOCUSATE SODIUM 250 MG CAPSULE PO SCH (08:53)
[2017-06-09] MEDS: FOLIC ACID 1 MG TABLET PO SCH (08:53)
[2017-06-09] MEDS: MAGNESIUM CHLORIDE 64 MG TABLET.SA PO SCH ×2 (08:53→20:50)
[2017-06-09] MEDS ORDERED: TUBERCULIN,PURIF.PROT.DERIV. 5 TU/0.1 ML TEST ID ONE (09:00)
[2017-06-09] MEDS ORDERED: 5 DAY TAPER OF LORAZEPAM -SERENITY PROTOCOL PO PRN (09:00)
[2017-06-09] MEDS: LORAZEPAM 1 MG TABLET PO PRN (11:08)
--- NOTE | 2017-06-09 11:08 | NUR ---
PRN ATIVAN Patient presented with: tremors, sweats, clammy skin, flushed face, anxiety, restlessness, difficulty sitting still, with ciwa score of: 14. provided patient with non pharmacological interventions with no relief, Administered PRN ativan 1mg PO. for ciwa score of: 14. will continue to monitor. vital signs WNL. will monitor closely.
--- NOTE | 2017-06-09 12:08 | NUR ---
ATIVAN REASSESSMENT Decrease in ciwa score from: 14 to 12, detox medication effective at reducing withdrawal symptoms, will continue to monitor closely. vital signs WNL. safety measures in place.
--- NOTE | 2017-06-09 18:00 | NUR ---
VIVID DREAMS Patient reported that she is having "vivid dreams" patient reported she took a nap after dinner and upon waking up she reported she was talking to her dog, but as soon as she was fully awake, she reports "i comprehended i was dreaming" while awake, patient reports no episodes of auditory of visual hallucinations. MD aware, will continue to monitor closely.
--- NOTE | 2017-06-09 18:53 | NUR ---
START OF SHIFT NOTE Endorsed patient presented for Alcohol/vodka withdrawal, continues 5 day Ativan taper. She is tolerated well. Patient is alert and oriented x4. Patient c/o " feelings of sad", reported of "vivid dreams" during day nap. Emotional support and reassuring provided. Patient denied SI/HI. Last CIWA 12 @1600: Patient presented with anxiety, agitation, nervousness, tremors, sweating, restlessness, fatigue, and stomach pain. Patient denies SI/HI. Encouraged to attend group activities, to increasing oral fluids. PRN Ativan 1 mg PO given @1208 as ordered was effective per day shift nurse report. Patient remains compliant with treatment, medications, and diet regime per day shift nurse report. All safety measures in the place: Call light within reach, bed locked and in the lowest position, padded rails up x 2. Patient endorsed by day shift nurse, report received. Will continue to monitor closely.
--- NOTE | 2017-06-09 18:53 | NUR ---
END OF SHIFT Patient alert and oriented x4, patient noted anxious, and worried mood. Patient has anxious, worried, and irritable facial expression. Mood is flat and labile. Patient continues under close observation, placed on 5 day Ativan taper as ordered for withdrawal. During shift patient presented with: wringing hands, flushed faced, clammy skin, tremors, sweats, anxiety and agitation, and reported episode of "vivid dreams" during nap. Initial ciwa score of: 14, last ciwa score of: 12. Received PRN: Ativan 1mg PO as ordered for s/sx of withdrawal. patient was encouraged adequate PO fluid intake as tolerated, patient encouraged to develop coping skills and utilization of non pharmacological interventions. Patient was encouraged to participate in therapy session .Encouraged diversional activities to alleviate anxiety. Denies any SI/HI. Safety measures in place. Call light kept with in reach, patient endorsed to rn shift mgr nurse, all pertinent information was discussed.
[2017-06-09] MEDS: PRAZOSIN HCL 1 MG CAPSULE PO SCH (20:51)
[2017-06-09] MEDS: diphenhydrAMINE 50 MG CAPSULE PO PRN (20:51)
--- NOTE | 2017-06-09 20:51 | NUR ---
PRN BENADRYL 50 MG 1 CAPSULE PO ADMINISTRATION PATIENT C/O INSOMNIA AND ASKED AID. PRN BENADRYL 50 MG 1 CAPSULE PO FOR INSOMNIA ADMINISTRATED ORDERED. PATIENT TOLERATED WELL. ALL SAFETY MEASURES IN PLACE: CALL LIGHT WITHIN REACH, BED LOCKED IN LOWEST POSITION, PADDED BED RAILS UP X2. WILL CONTINUE TO MONITOR CLOSELY.
--- NOTE | 2017-06-09 21:51 | NUR ---
RE-ASSESSMENT PATIENT IS SLEEPING. RR:17. RESPIRATIONS ARE EVEN AND UNLABORED. PRN BENADRYL 50 MG 1 CAPSULE PO ADMINISTRATED FOR INSOMNIA @2050 WAS EFFECTIVE. ALL NEEDS MET. SAFETY MEASURES IN PLACE: CALL LIGHT WITHIN REACH, BED IS LOCKED IN LOWEST POSITION, BED RAILS UP X2. WILL CONTINUE TO MONITOR CLOSELY.
[2017-06-10] VITALS: BP 102/60
[2017-06-10 04:00] VITALS: BP 118/63
--- NOTE | 2017-06-10 06:52 | NUR ---
END OF SHIFT NOTE: Patient is alert and oriented x4, admitted for Alcohol (Vodka) withdrawal. She is continues 5 Day Ativan Taper which tolerated well. Patient appears depressed, disheveled, undernourished, sad, with dark circles around eyes. Patient 's c/o feelings of low self- esteem, increased anxiety, depression, and irritability. Patient denied SI/HI. Emotional support provided. The patient was educated in safety and hygiene care. The patient was encouraged to independently perform hygiene care. Withdrawal symptoms was closely monitored. CIWA=10 @2000, CIWA=11 @0000. Last CIWA=8 @0400. Patient presented with anxiety, agitation, nervousness, tremors, sweating, and insomnia. PRN Benadryl 50 mg 1 cap PO administrated for insomnia @2050 was effective. Safe and calm environment with minimized noises was provided. Patient slept 9 hours, intake 1,355 ml, voided x2. All needs met. Safety measures in the place by hospital policy: Call light within reach, bed in the lowest position and locked, padded rails up x2. Patient endorsed to day shift nurse.
--- NOTE | 2017-06-10 07:36 | NUR ---
BEGINNING OF SHIFT Patient endorsement report received from shift commander nurse, all pertinent information discussed. Patient is a 41 year old female with admitting Dx: ETOH withdrawal. Patient continues under very close observation, patient with ongoing 5 day Ativan taper as ordered, and is scheduled to begin day 2 of taper. Per shift commander patient with last ciwa score of: 8. received PRN: Benadryl as ordered during shift commander, per shift commander medications were effective. slept for 9 hours. Fall and seizure precautions observed at all times. Patient received awake, alert and oriented x4, educated regarding plan of care for the day, and medication regimen with good verbal understanding. will continue to monitor closely. safety measures in place.
[2017-06-10 08:41] VITALS: BP 131/78
[2017-06-10] MEDS: THIAMINE HCL 100 MG TABLET PO SCH (08:41)
[2017-06-10] MEDS: DULOXETINE 60 MG CAPSULE.DR PO SCH (08:41)
[2017-06-10] MEDS: FAMOTIDINE 20 MG TABLET PO SCH (08:42)
[2017-06-10] MEDS: DOCUSATE SODIUM 250 MG CAPSULE PO SCH (08:42)
[2017-06-10] MEDS: LORAZEPAM 1 MG TABLET PO SCH ×3 (08:42→20:46)
[2017-06-10] MEDS: GABAPENTIN 300 MG CAPSULE PO SCH ×3 (08:42→20:47)
[2017-06-10] MEDS: MAGNESIUM CHLORIDE 64 MG TABLET.SA PO SCH ×2 (08:42→20:46)
[2017-06-10] MEDS: FOLIC ACID 1 MG TABLET PO SCH (08:42)
[2017-06-10] MEDS: MULTIVITAMINS,THERAPEUTIC TABLET PO SCH (08:42)
--- NOTE | 2017-06-10 12:46 | NUR ---
Therapist encouraged client to go to groups and share with others, which would benefit with reducing anxiety and social isolation.
[2017-06-10 13:50] VITALS: BP 125/81
[2017-06-10 16:21] VITALS: BP 118/75
--- NOTE | 2017-06-10 19:05 | NUR ---
END OF SHIFT Patient alert and oriented x4, patient noted anxious, and worried mood. Patient has anxious, worried, and irritable facial expression. Mood is flat and labile. Patient continues under close observation, placed on 5 day Ativan taper as ordered for withdrawal. During shift patient presented with: wringing hands, flushed faced, clammy skin, tremors, sweats, anxiety and agitation, and reported episode of "vivid dreams" reports had during previous night during sleep. Initial ciwa score of: 12, last ciwa score of: 12. Received no PRNs during overnight houseperson. patient was encouraged adequate PO fluid intake as tolerated, patient encouraged to develop coping skills and utilization of non pharmacological interventions. Patient participating in activities, reported participated In yoga activity. Patient was encouraged to participate in therapy session .Encouraged diversional activities to alleviate anxiety. Denies any SI/HI. Seen By Dr. Godinez during shift. Safety measures in place. Call light kept with in reach, patient endorsed to overnight houseperson nurse, all pertinent information was discussed.
--- NOTE | 2017-06-10 19:15 | NUR ---
Start of Shift Note: Endorsement received from day shift nurse. Received patient alert & oriented x4. Patient currentyly on Ativan taper and is tolerating taper well. No adverse reactions noted. Patient appears flushed with anxious/irritable mood. Patient presented with anxiety, restlessness, sweating, tremors, and moderate headache. Last CIWA is 12 during the day. Pt did not receive any PRN medications. Encourage pt to attend group activity. Patient remains compliant with treatment, medication and diet regimen. Encourage pt to increase fluid intake. Pt educated current plan of care for the night and medication regimen. Safety measures in place. Will continue to monitor patient.
[2017-06-10 20:00] VITALS: BP 133/85
[2017-06-10] MEDS: PRAZOSIN HCL 1 MG CAPSULE PO SCH (20:46)
[2017-06-10] MEDS: diphenhydrAMINE 50 MG CAPSULE PO PRN (20:46)
--- NOTE | 2017-06-10 20:46 | NUR ---
PRN Benadryl & Motrin Patient complains of moderate headache & requesting for medication to help her sleep. PRN Motrin and Benadryl administered as ordered. Will continue to monitor patient.
[2017-06-10] MEDS: IBUPROFEN 400 MG TABLET PO PRN (20:47)
--- NOTE | 2017-06-10 21:46 | NUR ---
PRN Reassessment Patient still awake at this time. Pt verbalized relief from headache after Motrin was given. Patient in bed and appears calm and comfortable. No facial grimacing noted. Safety measures in place. Will continue to monitor patient.
--- NOTE | 2017-06-11 | NUR ---
Vitals refused/CIWA deferred Pt requested not to be woken up for vitals at this time. Pt currently in bed with eyes close. No shortness of breath noted. Safety measures in place. Will continue to monitor patient.
--- NOTE | 2017-06-11 07:17 | NUR ---
End of Shift Note: Patient still asleep at this time. Patient remains alert & oriented x4. Patient continues on a Ativan taper and tolerating well. Pt presented with anxiety, agitation, headache, moist/clammy skin, fine tremors & moderate headache. Pt received PRN Motrin for headache and Benadryl for sleep during my shift and were effective. Last CIWA 12. Closely monitor s/s of withdrawal. Pt slept for a total of 8 hours. Fluid intake: 1000 ml. Voided 2x with no bowel movement during my shift. Patient was encourage to increase fluid intake as tolerated. All needs attended. Safety measures in place. Will endorse to day shift nurse.
--- NOTE | 2017-06-11 07:19 | NUR ---
BEGINNING OF SHIFT Patient endorsement report received from night coordinator nurse, all pertinent information discussed. Patient is a 41 year old female with admitting Dx: ETOH withdrawal. Patient continues under very close observation, patient with ongoing 5 day Ativan taper as ordered, and is scheduled to begin day 3 of taper. Per night coordinator patient with last ciwa score of: 12. received PRN: Benadryl and Motrin as ordered during night coordinator, per night coordinator medications were effective. slept for 8 hours. Fall and seizure precautions observed at all times. Patient received awake, alert and oriented x4, educated regarding plan of care for the day, and medication regimen with good verbal understanding. will continue to monitor closely. safety measures in place.
[2017-06-11 07:43] LABS: BILIRUBIN,DIRECT 0.4 mg/dL (0.0-0.2); CREATININE 0.6 mg/dL (0.6-1.3); MAGNESIUM 1.7 mg/dL (1.8-2.4); PHOSPHOROUS 3.6 mg/dL (2.5-4.9); POTASSIUM 3.3 mmol/L (3.5-5.1); TOTAL PROTEIN, SERUM 6.8 g/dL (6.4-8.2)
[2017-06-11 08:33] VITALS: BP 124/74
[2017-06-11] MEDS: FOLIC ACID 1 MG TABLET PO SCH (08:34)
[2017-06-11] MEDS: FAMOTIDINE 20 MG TABLET PO SCH (08:34)
[2017-06-11] MEDS: DULOXETINE 60 MG CAPSULE.DR PO SCH (08:34)
[2017-06-11] MEDS: DOCUSATE SODIUM 250 MG CAPSULE PO SCH (08:34)
[2017-06-11] MEDS: LORAZEPAM 1 MG TABLET PO SCH ×4 (08:34→20:19)
[2017-06-11] MEDS: THIAMINE HCL 100 MG TABLET PO SCH (08:34)
[2017-06-11] MEDS: MULTIVITAMINS,THERAPEUTIC TABLET PO SCH (08:34)
[2017-06-11] MEDS: GABAPENTIN 300 MG CAPSULE PO SCH ×3 (08:34→20:19)
[2017-06-11] MEDS: MAGNESIUM CHLORIDE 64 MG TABLET.SA PO SCH ×2 (08:34→20:18)
[2017-06-11 12:38] VITALS: BP 120/68
--- NOTE | 2017-06-11 13:00 | NUR ---
LABS Patient with potassium level of 3.3 and magnesium level of 1.7 Dr. Godinez aware, will input new orders.
[2017-06-11] MEDS ORDERED: POTASSIUM CHLORIDE 20 MEQ TAB.PRT.SR PO ONE (15:00)
[2017-06-11] MEDS ORDERED: MAGNESIUM OXIDE 400 MG TABLET PO ONE (15:00)
[2017-06-11 16:37] VITALS: BP 118/62
--- NOTE | 2017-06-11 19:15 | NUR ---
END OF SHIFT Patient alert and oriented x4, patient noted anxious, and worried mood. Patient has anxious, worried, and irritable facial expression. Mood is flat and labile. Patient continues under close observation, placed on 5 day Ativan taper as ordered for withdrawal. During shift patient presented with: clammy skin, tremors, sweats, anxiety and agitation, elevated heart rate. Initial ciwa score of: 13, last ciwa score of: 12. Received no PRNs during shift coordinator. patient was encouraged adequate PO fluid intake as tolerated, patient encouraged to develop coping skills and utilization of non pharmacological interventions. Patient participating in activities, reported participated In yoga activity. Patient was encouraged to participate in therapy session .Encouraged diversional activities to alleviate anxiety. Denies any SI/HI. Seen By Dr. Godinez during shift. Safety measures in place. Call light kept with in reach, patient endorsed to shift coordinator nurse, all pertinent information was discussed.
--- NOTE | 2017-06-11 19:25 | NUR ---
START OF SHIFT Patient is a 41-year-old female admitted on 06/08/17 for ETOH (vodka) withdrawal. Patient is on day 3 of 5 day Ativan taper, tolerating well. Patients last CIWA was 12 per day shift. Patient received no PRNs during day shift. Upon assessment, patient appears distraught and uncomfortable, complaining of diarrhea and headache. Patient reports anxiety, difficulty sleeping, and generally feeling unless since late afternoon. Safety measures in place, side rails up x2, bed locked in low position, call light within reach. Will continue to monitor.
[2017-06-11 20:00] VITALS: BP 131/78
[2017-06-11] MEDS: PRAZOSIN HCL 1 MG CAPSULE PO SCH (20:18)
[2017-06-11] MEDS: diphenhydrAMINE 50 MG CAPSULE PO PRN (20:18)
[2017-06-11] MEDS: IBUPROFEN 400 MG TABLET PO PRN (20:19)
--- NOTE | 2017-06-11 20:19 | NUR ---
PRN MOTRIN, IMODIUM, AND BENADRYL Patient reports headache, 3/10 on pain scale. Patient reports LBM. Patient reports difficulty sleeping and is requesting aid. PRN Motrin, Imodium, and Benadryl given PO. Safety measures in place, call light within reach. Will monitor for effectiveness.
--- NOTE | 2017-06-11 21:19 | NUR ---
PRN MOTRIN, IMODIUM, AND BENADRYL REASSESSMENT Patient reports no headache and no LBM in last hour. Patient states she is sleepy and reports that she is "ready for bed." PRN medications effective. Safety measures in place, call light within reach. Will continue to monitor.
--- NOTE | 2017-06-12 | NUR ---
VITALS REFUSED, CIWA DEFERRED Patient refused her midnight vitals to be taken. CIWA deferred due to patient sleeping; to be assessed and scored while patient is awake. Safety measures in place, side rails up x2, bed locked in low position, call light within reach. Will continue to monitor.
--- NOTE | 2017-06-12 04:00 | NUR ---
VITALS REFUSED, CIWA DEFERRED Patient refused 4AM vitals, CIWA deferred due to patient sleeping; to be assessed and scored while patient is awake. Respirations even and unlabored, 16/min. Safety measures in place, call light within reach. Will continue to monitor.
--- NOTE | 2017-06-12 07:16 | NUR ---
END OF SHIFT Patient is a 41-year-old female admitted on 06/08/17 for ETOH (vodka) withdrawal. Today will be day 4 of patients 5-day Ativan taper; tolerating well. Patients last CIWA was10. Patient received PRN Benadryl, Motrin, and Imodium; all PRNs effective. Patient slept for 9 hours, total intake 1,154 mL, void x3, stool x0. Safety measures in place, side rails up x2, bed locked in low position, call light within reach. Will endorse to day shift.
--- NOTE | 2017-06-12 07:30 | NUR ---
START OF SHIFT Endorse rcvd from ongoing nurse, client's room feels stuffy. Client is in bed in a position, a/o to name, place and situation, he presents anxious mood, flat affect, red, teary eyes, dark circles under her eyes, pale skin, sunken cheeks, flushed face, fine tremors, clammy skin, she has difficulty concentrating. Client reports in a soft, shaky voice; abdominal cramps, feeling of panic, restless legs, nausea, and fatigue. Encourage client to increase PO fluid as tolerated to facilitate detox. Encourage client to participate in ADL and to attend group therapy for skills to maintain sober. PRN Motrin 400mg PO for pain, Imodium 2mg PO for diarrhea, Benadryl 50mg PO for inability to sleep, noted effective. Client slept 9 hrs. Seizure precautions rendered. Call light within reach.
[2017-06-12 07:49] LABS: POTASSIUM 3.9 mmol/L (3.5-5.1)
[2017-06-12 07:50] LABS: CREATININE 0.6 mg/dL (0.6-1.3); MAGNESIUM 1.8 mg/dL (1.8-2.4)
[2017-06-12 08:00] VITALS: BP 127/67
[2017-06-12] MEDS ORDERED: LORAZEPAM 1 MG TABLET PO SCH ×2 (09:00→17:00)
[2017-06-12] MEDS: THIAMINE HCL 100 MG TABLET PO SCH (09:12)
[2017-06-12] MEDS: DULOXETINE 60 MG CAPSULE.DR PO SCH (09:12)
[2017-06-12] MEDS: MAGNESIUM CHLORIDE 64 MG TABLET.SA PO SCH ×2 (09:12→20:49)
[2017-06-12] MEDS: DOCUSATE SODIUM 250 MG CAPSULE PO SCH (09:12)
[2017-06-12] MEDS: FAMOTIDINE 20 MG TABLET PO SCH (09:12)
[2017-06-12] MEDS: GABAPENTIN 300 MG CAPSULE PO SCH ×3 (09:12→20:49)
[2017-06-12] MEDS: MULTIVITAMINS,THERAPEUTIC TABLET PO SCH (09:12)
[2017-06-12] MEDS: FOLIC ACID 1 MG TABLET PO SCH (09:12)
[2017-06-12 12:00] VITALS: BP 135/80
[2017-06-12 16:55] VITALS: BP 131/65
--- NOTE | 2017-06-12 19:02 | NUR ---
END OF SHIFT Endorsed client to incoming nurse, client is a/o x 4, she is compliant with group therapy, client remains isolated in her room for the most part, she continues to present with anxious mood, flat affect, restless legs, fine tremors, flushed face, and fatigue. She consumed ~ 50 % of meals. Adequate PO fluid intake 2250mL, void x 3. Last CIWA 13 @ 1600. Call light within reach.
--- NOTE | 2017-06-12 19:30 | NUR ---
START OF SHIFT Pt is a 41-year-old female admitted on 06/08/17 for ETOH withdrawal. Pt continues on 5 day Ativan taper as ordered and is tolerating well. Pt's last CIWA was 13 per day shift. Pt received no PRN medications during day shift. Upon assessment, Pt reports anxiety and having difficulty sleeping. All safety measures in place. Call light is with in reach.Will continue to monitor for safety and medicate per orders.
[2017-06-12 20:00] VITALS: BP 138/90
[2017-06-12] MEDS: PRAZOSIN HCL 1 MG CAPSULE PO SCH (20:50)
[2017-06-12] MEDS: diphenhydrAMINE 50 MG CAPSULE PO PRN (20:50)
--- NOTE | 2017-06-12 20:50 | NUR ---
PRN BENADRYL GIVEN ORDERED FOR C/O INSOMNIA.PT STATED SHE WANTED TO GO TO BED EARLY.
--- NOTE | 2017-06-12 20:50 | NUR ---
PRN MIRALAX GIVEN FOR C/O CONSTIPATION.PO FLUIDS ENCOURAGED,WILL CONTINUE TO MONITOR.
[2017-06-12] MEDS ORDERED: LORAZEPAM 1 MG TABLET PO ONE (21:00)
--- NOTE | 2017-06-12 21:50 | NUR ---
PRN F/U PT IS RESTING IN BED WITH EYES CLOSED.BREATHING IS EVEN AND NON LABORED,NO S/S OF DISTRESS NOTED,WILL CONTINUE TO MONITOR.
[2017-06-13] VITALS: BP 128/88
--- NOTE | 2017-06-13 | NUR ---
CIWA DEFERRED PT IS RESTING IN BED WITH EYES CLOSED,SLEEPING COMFORTABLY.BREATHING IS EVEN AND NON LABORED,NO S/S OF DISTRESS NOTED,CIWA DEFERRED D/T SLEEP,WILL CONTINUE TO MONITOR.
--- NOTE | 2017-06-13 04:00 | NUR ---
V/S REFUSED;CIWA DEFERRED Pt refused v/s, CIWA deferred due to patient sleeping;Respirations are even and nonlabored; Safety measures in place, call light within reach. Will continue to monitor.
--- NOTE | 2017-06-13 06:58 | NUR ---
END OF SHIFT Pt is a 41-year-old female admitted on 06/08/17 for ETOH withdrawal. Pt continues on 5 day Ativan taper as ordered and is tolerating well. Pt's last CIWA was 9 at 1999. Pt received PRN Benadryl and was effective.PRN Miralax given for constipation,result still pending.Pt slept 8 hrs,fluid intake was 855 mls,voided x 1 . All safety measures in place. Call light is with in reach.Will continue to monitor for safety and medicate per orders.
--- NOTE | 2017-06-13 07:33 | NUR ---
START OF SHIFT RECEIVED PT LAYING IN BED, A/OX4, RESPIRATIONS EVEN AND UNLABORED. PT C/O HEADACHE, RESTLESSNESS AND STATES, "I COULDN'T REALLY SLEEP LAST NIGHT." ENCOURAGED PT TO INCREASE FLUIDS FOR HYDRATION. SIDE RAILS UPX2, BED IS IN LOWEST POSITION. CALL LIGHT IS WITHIN REACH. SAFETY MEASURES IN PLACE. WILL CONTINUE TO MONITOR.
[2017-06-13 08:00] VITALS: BP 120/62
[2017-06-13] MEDS ORDERED: LORAZEPAM 1 MG TABLET PO SCH ×2 (09:00)
[2017-06-13] MEDS ORDERED: LORAZEPAM 1 MG TABLET PO ONE (09:00)
[2017-06-13] MEDS: DULOXETINE 60 MG CAPSULE.DR PO SCH (09:17)
[2017-06-13] MEDS: GABAPENTIN 300 MG CAPSULE PO SCH ×2 (09:17→14:37)
[2017-06-13] MEDS: THIAMINE HCL 100 MG TABLET PO SCH (09:17)
[2017-06-13] MEDS: MAGNESIUM CHLORIDE 64 MG TABLET.SA PO SCH ×2 (09:17→20:18)
[2017-06-13] MEDS: DOCUSATE SODIUM 250 MG CAPSULE PO SCH (09:17)
[2017-06-13] MEDS: IBUPROFEN 400 MG TABLET PO PRN ×3 (09:17→20:18)
[2017-06-13] MEDS: MULTIVITAMINS,THERAPEUTIC TABLET PO SCH (09:17)
[2017-06-13] MEDS: FOLIC ACID 1 MG TABLET PO SCH (09:17)
--- NOTE | 2017-06-13 09:17 | NUR ---
PRN MOTRIN 400 MG PO PRN GIVEN FOR HEADACHE 10/18. WILL MONITOR FOR EFFECTIVENESS.
[2017-06-13] MEDS: FAMOTIDINE 20 MG TABLET PO SCH (09:18)
--- NOTE | 2017-06-13 10:17 | NUR ---
REASSESSMENT PT REPORTED MED EFFECTIVE FOR HEADACHE NOW 0/10 PAIN. WILL CONTINUE TO MONITOR.
[2017-06-13 12:00] VITALS: BP 121/74
--- NOTE | 2017-06-13 14:38 | NUR ---
PRN PT C/O HEADACHE 7/10 PAIN. IBUPROFEN GIVEN. WILL MONITOR FOR EFFECTIVENESS.
--- NOTE | 2017-06-13 15:38 | NUR ---
REASSESSMENT PT REPORTED IBUPROFEN WAS EFFECTIVE FOR HEADACHE NOW 05/21. WILL CONTINUE TO MONITOR.
[2017-06-13 16:00] VITALS: BP 127/72
--- NOTE | 2017-06-13 18:52 | NUR ---
END OF SHIFT LAST CIWA 6 @1600. PT C/O HEADACHE TODAY, IBUPROFEN GIVEN X2 ON SHIFT; MED WAS EFFECTIVE. PT COMPLETED ATIVAN TAPER TODAY AND TOLERATED WELL. PT IS TO BE DISCHARGED TOMORROW. ALL SAFETY MEASURES IN PLACE. WILL GIVE ENDORSEMENT AND PERTINENT INFO TO VOYAGE MANAGEMENT SYSTEM OPERATOR NURSE.
--- NOTE | 2017-06-13 19:30 | NUR ---
START OF SHIFT Pt is a 41 y/o female admitted on 06/08/17 for ETOH withdrawal. Pt finished a 5 day Ativan taper today and is scheduled to be d/c tomorrow. Per day shift nurse, last CIWA 6 and PRN Motrin x 2 administered for headache. Upon arrival on unit pt requests to make a phone call and appears severely anxious. Pt also presents with restlessness, sweats, tremors, flushed skin, headache 5/10, difficulty sleeping, irritability, increased HR, depressed affect, feelings of guilt, unwashed hair, anhedonia and dysphoria. Pt appears worried, sad and angry after phone call she made with her family, pt stated "My was being so mean and I miss my kids." Pts room is unkempt. Medications due. Safety measures in place. Call light within reach. Will continue to monitor.
[2017-06-13 20:00] VITALS: BP 147/93
[2017-06-13] MEDS: diphenhydrAMINE 50 MG CAPSULE PO PRN (20:18)
[2017-06-13] MEDS: PRAZOSIN HCL 1 MG CAPSULE PO SCH (20:18)
--- NOTE | 2017-06-13 20:18 | NUR ---
PRN MOTRIN AND BENADRYL ADMINISTRATION Pt reports headache /10 and requests sleep aid. Safety measures in place. Call light within reach. Will continue to monitor.
[2017-06-13] MEDS ORDERED: GABAPENTIN 300 MG CAPSULE PO SCH (21:00)
--- NOTE | 2017-06-13 21:18 | NUR ---
PRN MOTRIN AND BENADRYL ADMINISTRATION Pt laying in bed with eyes closed, medications noted effective. Respirations even and unlabored. Safety measures in place. Call light within reach. Will continue to monitor.
--- NOTE | 2017-06-14 | NUR ---
CIWA DEFERRED AND VITALS REFUSED Pt laying in bed with eyes closed, CIWA deferred, to be assessed when pt is awake per orders. Vitals refused. Respirations even and unlabored. Safety measures in place. Call light within reach.
[2017-06-14 04:00] VITALS: BP 128/83
--- NOTE | 2017-06-14 07:10 | NUR ---
END OF SHIFT Pt is a 41 y/o female admitted on 06/08/17 for ETOH withdrawal. Pt finished a 5 day Ativan taper yesterday and is scheduled to be d/c tomorrow. Pt presented with restlessness, sweats, tremors, flushed skin, headache 5/10, difficulty sleeping, irritability, increased HR, depressed affect, feelings of guilt, unwashed hair, anhedonia and dysphoria. Pt appeared worried, sad and angry after phone call she made with her family. Pts room is unkempt. Scheduled medications and PRN Motrin and Benadryl administered, effective in S/S of withdrawal AEB CIWA 12 lowered to CIWA 8. Pt slept 6 hours. Intake 1590 ml, void x 2, stool x 0. Safety measures in place. Call light within reach. Pts needs have been met. Endorsed to day shift nurse.
--- NOTE | 2017-06-14 07:19 | NUR ---
START OF SHIFT RECEIVED PT A/OX4, RESPIRATION AND UNLABORED. PT APPEARS DISHEVELED, HAS A FLAT AFFECT, PT STATES HE HAS ANXIETY ABOUT LEAVING DETOX. PT IS TO BE DISCHARGED TOMORROW. SIDE RAILS UPX2, BED IS IN LOWEST POSITION. CALL LIGHT WITHIN REACH. ALL SAFETY MEASURES IN PLACE. WILL CONTINUE TO MONITOR.
[2017-06-14 08:00] VITALS: BP 122/68
[2017-06-14] MEDS: FOLIC ACID 1 MG TABLET PO SCH (08:57)
[2017-06-14] MEDS: MULTIVITAMINS,THERAPEUTIC TABLET PO SCH (08:57)
[2017-06-14] MEDS: THIAMINE HCL 100 MG TABLET PO SCH (08:57)
[2017-06-14] MEDS: DULOXETINE 60 MG CAPSULE.DR PO SCH (08:57)
[2017-06-14] MEDS: MAGNESIUM CHLORIDE 64 MG TABLET.SA PO SCH (08:57)
[2017-06-14] MEDS: DOCUSATE SODIUM 250 MG CAPSULE PO SCH (08:57)
[2017-06-14] MEDS: GABAPENTIN 300 MG CAPSULE PO SCH (08:57)
[2017-06-14] MEDS: FAMOTIDINE 20 MG TABLET PO SCH (08:57)
--- NOTE | 2017-06-14 09:45 | NUR ---
DISCHARGE NOTE PT IS A/OX4, RESPIRATIONS EVEN AND UNLABORED, IS IN STABLE CONDITION, VVS. LAST CIWA 5. D/C PAPERWORK SIGNED AND COPIED, D/C INSTRUCTIONS GIVEN. PT VERBALIZED UNDERSTANDING. PT DID NOT HAVE ANY HOME MEDS OR HOME TOILETRIES. PT LEFT THE BUILDING WITH ALL BELONGINGS, PRESCRIPTIONS AND D/C PAPERWORK. PT HAS BEEN PICKED UP BY "[facility]" AND HAS BEEN TAKEN TO [facility].
== END 2017-06-14 09:45 | disposition other institution (70) | DRG 895 ==
LOC: SRC 12:02
PROVIDERS: ADMIT Internal Medicine; ATTEND Internal Medicine
PROC: HZ2ZZZZ Detoxification Services for Substance Abuse Treatment (ICD-10-PCS; principal; 2017-06-08)
PROC: HZ41ZZZ Group Counseling for Substance Abuse Treatment, Behavioral (ICD-10-PCS; 2017-06-10)
DX: F10.230 Alcohol dependence with withdrawal, uncomplicated (principal); E78.5 Hyperlipidemia, unspecified; Z79.899 Other long term (current) drug therapy; Z81.1 Family history of alcohol abuse and dependence; Y90.6 Blood alcohol level of 120-199 mg/100 ml; Z82.49 Family history of ischemic heart disease and other diseases of the circulatory system; Z91.89 Other specified personal risk factors, not elsewhere classified; F32.9 Major depressive disorder, single episode, unspecified; E87.6 Hypokalemia; I10 Essential (primary) hypertension; R04.0 Epistaxis
CPT/HCPCS: 36415; 70030-TC; 80307; 83690; 83735; 84100; 84703; 85025; 86580; 86592; 86705; 86803; 87340; 87806; A4663; G0480; Q0163